=== PATIENT | male | born 1950 | race Caucasian/White ===

== ENCOUNTER → 2023-08-30 09:10 | Outpatient (CLI) | payer OTHER, SELFPAY ==
--- NOTE | 2023-08-30 09:18 | DI.ECHO.S_ITS ---
[facility] +---------+ [facility] : : [address] : : [place] : : [id number] : : Phone: [phone] Echocardiogram Report + + :Name: CONOR BAE Study Date: 08/30/2023 Height: 63 in : :Hospital ReadingLocation: Weight: 168 lb : : Gender: Male BSA: 1.8 m2 : :: 1950 Age: 72 yrs BP: 137/72 mmHg: :Reason For Study: ATHEROSCLEROTIC HEART DISEASE : :Ordering Physician: MILAN, : :ANASTACIO Performed By: Christopher Trent : :Referring: ANASTACIO YATES : + + Interpretation Summary 1) Normal left ventricular thickness, size, wall motion, and systolic function (EF 60-65%). 2) Mildly enlarged right ventricle with normal function. 3) No significant valvular abnormalities. 4) No prior Echo available for comparison. Procedure: A two-dimensional transthoracic echocardiogram with color flow and Doppler was performed. The study quality was technically adequate. There is no prior echocardiogram noted for this patient. The patient was in sinus rhythm with heart rates between 53-56 bpm during the exam. Left Ventricle: The left ventricle is normal in size and wall thickness. The ejection fraction is estimated to be 60-65%. Left ventricular systolic function appears normal without focal wall motion abnormalities. Diastolic parameters suggest a relaxation abnormality of the left ventricle, consistent with probable normal filling pressures. Right Ventricle: The right ventricle is mildly dilated. The right ventricular systolic function is normal. Atria: The left atrium is moderately dilated. The right atrium is mildly dilated. The interatrial septum grossly appears intact with no obvious evidence for an atrial septal defect. Mitral Valve: The mitral valve is normal. There is no mitral valve stenosis. There is trace mitral regurgitation. Aortic Valve: The aortic valve is trileaflet. The aortic valve is moderately calcified. There is no aortic valve stenosis. No aortic regurgitation is present. Tricuspid Valve: The tricuspid valve is normal. There is no tricuspid stenosis. There is a trace or physiologic amount of tricuspid regurgitation. Pulmonic Valve: The pulmonic valve is not well visualized. There is no pulmonic valvular stenosis. There is mild to moderate pulmonic regurgitation. Great Vessels: The aortic root is normal size. The dimensions of the ascending aorta are normal. The IVC is of normal diameter and collapses greater than 50% with a sniff. This suggests a low right atrial pressure of 3 mm Hg. Pericardium/ Pleura There is no pericardial effusion. There is no pleural effusion. MMode/2D Measurements & Calculations LVIDd: 5.1 cm LVOT diam: 2.1 cm LVIDs: 3.3 cm Ao root diam: 3.5 cm FS: 35.0 % asc Aorta Diam: 3.4 cm IVSd: 0.88 cm LVPWd: 0.80 cm LV blanco. diameter/BSA (cm/m^2): 2.8 LV sys. diameter/BSA (cm/m^2): 1.8 LA A2 area: 22.2 cm2 RA long axis: 5.0 cm LA A4 area: 20.9 cm2 RA area: 16.0 cm2 LA length (vol): 5.9 cm RA vol: 43.9 ml LA vol: 66.8 ml RA : 24.5 ml/m2 LA vol index: 37.2 ml/m2 IVC diam: 1.0 cm RVD1 (basal): 4.8 cm RVD2 (mid): 4.7 cm TAPSE: 2.0 cm Doppler Measurements & Calculations Ao V2 max: 179.0 cm/sec LVOT Max Tad: 134.4 cm/sec Ao V2 mean: 127.8 cm/sec LV V1 max P.2 mmHg Ao max P.8 mmHg LV V1 VTI: 32.7 cm Ao mean P.4 mmHg JONELLE(I,D): 2.3 cm2 Ao V2 VTI: 49.1 cm JONELLE(V,D): 2.6 cm2 sev ratio: 0.67 JONELLE indexed to BSA (cm^2/m^2): 1.3 MV E max tad: 87.1 cm/sec PA V2 max: 103.0 cm/sec MV A max tad: 95.0 cm/sec PA V2 mean: 72.3 cm/sec MV E/A: 0.92 PA mean P.3 mmHg Med Peak E' Tad: 6.4 cm/sec PA pr(Accel): 44.7 mmHg E/E' med: 13.5 Lat Peak E' Tad: 10.6 cm/sec E/E' lat: 8.2 E/e' average: 10.9 MV dec time: 0.24 sec SV([facility]): 113.1 ml Reading Physician:[id number] PM
[2023-08-30 10:56] LABS: Add Manual Diff / Slide Review NO; Basophils Absolute Auto 0 /uL (0-100); Eosinophils Absolute Auto 100 /uL (0-450); Eosinophils Percent Auto 1.6 % (2-4); Hematocrit 33.7 % (41-53); Hemoglobin 11.9 g/dL (13.5-17.5); Lymphocytes Absolute Auto 1800 /uL (1100-4500); Lymphocytes Percent Auto 36.5 % (25-40); Mean Corpuscular HGB Conc 35.3 % (30-36); Mean Corpuscular Hemoglobin 37.7 PG (26-34); Mean Corpuscular Volume 106.9 fL (80-100); Monocytes Absolute Auto 900 /uL (0-900); Monocytes Percent Auto 19.5 % (3-14); Neutrophils Absolute Auto 2000 /uL (1500-7000); Neutrophils Percent Auto 41.4 % (50-75); Platelet Count 154 X10^3/uL (150-400); Red Blood Cell Count 3.16 X10^6/uL (4.5-5.9); Red Cell Distribution Width 18.4 % (11.6-14.8); White Blood Cell Count 4.9 X10^3/uL (4.5-11.0)
[2023-08-30 11:39] LABS: Free T3, Triiodothyronine Free 2.88 pg/mL (2.77-5.27)
[2023-08-30 11:52] LABS: Thyroid Stimulating Hormone 5.06 uIU/mL (0.47-4.68)
== END ==
PROVIDERS: PCP Family Medicine; Referring Provider Chiropractor; Visit Provider Chiropractor
DX: I25.10 Atherosclerotic heart disease of native coronary artery without angina pectoris (principal); I37.1 Nonrheumatic pulmonary valve insufficiency; E03.9 Hypothyroidism, unspecified; D64.9 Anemia, unspecified
CPT/HCPCS: 36415; 84439; 84443; 84481; 85025; 93306